=== PATIENT | female | born 2000 | race Caucasian/White ===

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

== ENCOUNTER 2024-06-14 10:57 | Emergency (ER) | payer OTHER ==
[2024-06-14 11:08] VITALS: BP 120/71; PULSE 85; RESP 20; TEMP 97.9; BMI 41.5
== END 2024-06-14 12:55 | disposition home or self-care (01) ==
LOC: JERFT 10:57
DX: M79.672 Pain in left foot (principal); M79.89 Other specified soft tissue disorders
CPT/HCPCS: 73610-TC-LT-FY; 73630-TC-LT; 99283-25